=== PATIENT | male | born 1955 | race African-American/Black ===

== ENCOUNTER 2024-01-24 13:10 | Emergency (ER) | payer SELFPAY ==
[~2024-01-24] VITALS: Ht 180.3 cm; Wt 97.5 kg
[2024-01-24 13:16] VITALS: BP 122/78; PULSE 94; RESP 20; TEMP 98.1; O2SAT 98
== END 2024-01-24 13:54 ==
LOC: MED 13:10
DX: Z02.89 Encounter for other administrative examinations (principal); V89.2XXA Person injured in unspecified motor-vehicle accident, traffic, initial encounter; Y93.89 Activity, other specified; Y92.410 Unspecified street and highway as the place of occurrence of the external cause; Y99.8 Other external cause status
CPT/HCPCS: 99283